=== PATIENT | male | born 1980 | race Caucasian/White ===

== ENCOUNTER 2021-08-15 04:47 | Emergency (ER) | payer OTHER ==
[~2021-08-15] VITALS: Ht 188 cm; Wt 137.9 kg
[2021-08-15 04:57] VITALS: BP 131/80
[2021-08-15] MEDS ORDERED: HYDROcodone/APAP 5/325 MG 1 TAB TAB PO ONE (05:05)
[2021-08-15] MEDS ORDERED: KETOROLAC 60 MG/2 ML VIAL IM ONE (05:05)
--- NOTE | 2021-08-15 05:06 | NUR ---
examined pt in triage.
--- NOTE | 2021-08-15 05:06 | NUR ---
pt taken to ch [facility]
[2021-08-15] MEDS ORDERED: HYDR-5080 PO (05:07)
--- NOTE | 2021-08-15 05:13 | NUR ---
IS DRIVING PT HOME. OK FOR [employer].
--- NOTE | 2021-08-15 05:21 | NUR ---
01/14 LEFT EARACHE XMONDAY. PT STATES HE WAS PRIMARY, PRESCRIBED CARMITA/POLY EAR DROPS AND AUGMENTIN, PT STATES HE HAS BEEN TAKING IT AND DOES NOT HAVE RELIEF. MEDS PRESCRIBED ON THE 08/13. DENIES HX, RX AND ALLERGIES
[2021-08-15 05:35] VITALS: BP 131/80
--- NOTE | 2021-08-15 05:35 | NUR ---
Patient discharged with v/s stable. Written and verbal after care instructions given and explained. Patient verbalized understanding. Ambulatory with steady gait. All questions addressed prior to discharge. Advised to follow up with PMD.
== END 2021-08-15 05:35 | disposition home or self-care (01) ==
LOC: MED 04:47
DX: H60.92 Unspecified otitis externa, left ear (principal); Z79.891 Long term (current) use of opiate analgesic
CPT/HCPCS: 96372; 99283; J1885